=== PATIENT | female | born 1970 | race Caucasian/White ===

== ENCOUNTER 2017-06-18 17:07 | Emergency (ER) | payer OTHER ==
[~2017-06-18] VITALS: Ht 170.2 cm; Wt 72.6 kg
[2017-06-18] MEDS ORDERED: LEVOXYL100 MCG PO (20:33)
[2017-06-18] MEDS ORDERED: NORCO 5-325 TA1 EACH PO (21:39)
[2017-06-18] MEDS ORDERED: NAPROSYN500 MG PO (21:39)
== END 2017-06-18 21:50 | disposition home or self-care (01) ==
LOC: ED 17:07
DX: S20.212A Contusion of left front wall of thorax, initial encounter (principal); E03.9 Hypothyroidism, unspecified; W17.89XA Other fall from one level to another, initial encounter; Z90.710 Acquired absence of both cervix and uterus; Z79.899 Other long term (current) drug therapy
CPT/HCPCS: 71101; 96372; 99283; J1885

== ENCOUNTER 2017-11-20 04:06 | Emergency (ER) | payer OTHER ==
[~2017-11-20] VITALS: Ht 170.2 cm; Wt 74.8 kg
[~2017-11-20 04:06] MED LIST: LEVOXYL100 MCG PO; NAPROSYN500 MG PO; NORCO 5-325 TA1 EACH PO
[2017-11-20] MEDS ORDERED: PROZAC10 MG PO (04:30)
[2017-11-20] MEDS ORDERED: NORCO 5-325 TA1 EACH PO (06:02)
== END 2017-11-20 06:24 | disposition home or self-care (01) ==
LOC: ED 04:06
DX: R10.9 Unspecified abdominal pain (principal); E03.9 Hypothyroidism, unspecified; Z90.710 Acquired absence of both cervix and uterus; Z90.89 Acquired absence of other organs; Z90.49 Acquired absence of other specified parts of digestive tract; Z79.899 Other long term (current) drug therapy; W01.10XA Fall on same level from slipping, tripping and stumbling with subsequent striking against unspecified object, initial encounter
CPT/HCPCS: 71046; 96372; 99283; J1170